=== PATIENT | female | born 1965 | race Caucasian/White ===

== ENCOUNTER 2016-04-22 13:04 | Emergency (ER) | payer OTHER ==
[~2016-04-22] VITALS: Ht 162.6 cm; Wt 88.6 kg
[~2016-04-22 13:04] MED LIST: ATEN50TA PO; CIPR-231 PO; HYDR-3090 PO; HYDR25TA4 PO; LEVO100T6 PO; NAPR375T4 PO; ONDA4TAB9 PO; ONDA8TAB10 PO; OXYC1TAB24 PO
[2016-04-22 13:07] VITALS: BP 146/91; PULSE 65; RESP 20; O2SAT 98
--- NOTE | 2016-04-22 13:37 | ED.REPORT ---
HPI-Back Pain 40 and Over Date of Service Apr 22, 2016 ED Provider: Doc,Ed MD History of Present Illness: lower right back pain, hurts to lay on it, since . Denies blood in urine, feels she has decreased urination [place] [facility] is primary care. + nausea and + vomiting pain is 7-8/10 worse with movement Nursing Notes Stated Complaint: SEVERE BACK PAIN/LOWER RIGHT SIDE Chief Complaint: Back Pain or Injury Nursing Notes Reviewed: Yes Allergies: Coded Allergies: codeine (Verified Allergy, Severe, SWELLING AND RASH, 01/22/15) erythromycin base (Verified Allergy, Intermediate, RASH, SWELLING, N/V, ) Scheduled Atenolol (Atenolol) 50 Mg Tablet 50 MG PO DAILY Ciprofloxacin (Cipro) 500 Mg Tablet 500 MG PO BID Hydrochlorothiazide (Hydrochlorothiazide) 25 Mg Tablet 25 MG PO DAILY Levothyroxine (Levothyroxine) 100 Mcg Tablet 100 MCG PO DAILY Scheduled PRN Hydrocodone-Acetaminophen 5-300 mg (Hydrocodone-Acetaminophen 5-300 mg) 1 Each Tablet 1-2 TABLET PO QID PRN PRN For Pain Naproxen (Naproxen) 375 Mg Tablet.dr 375 MG PO BID PRN PRN For Pain Ondansetron ODT (Zofran ODT) 4 Mg Tablet 4 MG PO Q4H PRN PRN For Nausea Ondansetron ODT (Ondansetron ODT) 8 Mg Tab.rapdis 8 MG PO Q4H PRN PRN For Nausea oxyCODONE-Acetaminophen 5-325 mg (oxyCODONE-Acetaminophen 5-325 mg) 1 Each Tablet 1-2 TAB PO Q6H PRN PRN For Pain General Time Seen by MD: 13:36 Chief Complaint Back pain, Flank pain right Hx Obtained From: Patient Sudden in Onset?: No Caused by: Spontaneous/no mechanism Severity: Current: Pain level 7 out of 10 Past Medical History Past Medical History hypertension hypercholesterolemia oteopenia hypothyroidism menopause Reports: Hypertension Reports: Thyroid disease Past Surgical History wrist and neck fusion Reports: Appendectomy, Cholecystectomy, Hysterectomy Smoking History Never Smoker Social History Alcohol Use: Denies alcohol use Drug Use: Denies drug use Occupation single, lives by self and cat works for [employer] 04/22/2016 Ambulatory Status Independent Review of Systems Basic Review of Systems Eyes: Vision NL, No discharge ENT: Hearing NL, No pain, No nasal congestion, No pharyngeal pain Hematologic: No bleeding, No bruising Endocrine: No cold intolerance, No heat intolerance, No weight gain, No weight loss Skin: No bruising, No rash, No itch Allergy / Immune: No allergy Psychiatric: Normal thought content Physical Exam Initial Vital Signs Vital Signs (First) Date Time Temp Pulse Resp B/P Pulse Ox O2 Delivery O2 Flow Rate FiO2 04/22/16 13:07 36.4 65 20 146/91 98 Room Air Initial VS: Reviewed, Vital signs normal Head / Eyes: Atraumatic, Normocephalic, PERRL ENT: Mucous membranes moist, Conjunctiva normal, No scleral icterus Neck: Supple, Non-tender, Full range of motion Lymphatic: No lymphadenopathy Extremities: Vascular intact, Neuro intact, No swelling, No tenderness Skin: Warm, Dry, No cyanosis Psychiatric: Mood/affect normal, Behavior normal, Normal thought content General/Constitutional: Awake, Alert, No acute distress, Well appearing, Well developed, Well hydrated Respiratory / Chest: Atraumatic, Breath sounds NL, Breath sounds = bilat, No respiratory distress Cardiovascular: Heart rate NL, Regular rhythm, Heart sounds NL, No gallop Abdomen: Atraumatic, Soft, Non-tender, McBurney's non-tender Back: Atraumatic, Inspection NL, Full range of motion, Painless range of motion right flank pain, no rash noted Neurologic: Oriented X3, Speech NL, No motor deficits Lower Extremity / Pelvis / MS: Atraumatic, Inspection NL, Full range of motion , No swelling Interpretation & Diagnostics Interpretation & Diagnostics: Image quality: Excellent. Lung bases: Lung bases are clear. Heart size is normal. Urinary system: No renal stones or hydronephrosis. There is a small exophytic left renal cyst. Both ureters appear non-dilated throughout their expected courses. Bladder wall thickness is normal; no calcified bladder stones. Other solid organs: Liver and spleen are normal in size. Gallbladder is surgically absent. Pancreas is normal in contours. No adrenal nodules. Peritoneum and bowel: Unenhanced bowel loops demonstrate normal wall thickness and caliber. There are postsurgical changes along the cecum likely related to prior appendectomy. No pericecal inflammatory changes. No free fluid or air. Nodes and vessels: No retroperitoneal or mesenteric adenopathy by size criteria. Aorta and inferior vena cava are normal in caliber. Abdominal wall: No ventral hernias. Pelvis: No free pelvic fluid. There are small fat containing bilateral inguinal hernias. No inguinal adenopathy. Bones: No suspicious bony lesions. No vertebral body compression fractures. IMPRESSION: 1. No evidence of nephrolithiasis or obstructive uropathy. 2. No definite acute intra-abdominal abnormality. Dictated by: Malcolm Conklin M.D. on 04/22/2016 at 14:17 Approved by: Malcolm Conklin M.D. on 04/22/2016 at 14:17 Lab Results Interpretation Result Diagram: 04/22/16 1420 04/22/16 1420 Test 04/22/16 13:49 04/22/16 14:20 Urine Color Yellow (YELLOW) Urine Appearance Clear (CLEAR,HAZY) Urine pH 7.5 (5.0-8.0) Urine Specific [place] 1.010 (1.003-1.035) Urine Protein Negativemg/dL (NEG,TRACE) Urine Glucose (UA) Negativemg/dL (NEGATIVE) Urine Ketones Negativemg/dL (NEGATIVE) Urine Occult Blood Negative (NEGATIVE) Urine Nitrite Negative (NEGATIVE) Urine Bilirubin Negative (NEGATIVE) Urine Urobilinogen Normalmg/dL (NORMAL) Urine Leukocyte Esterase Negative (NEGATIVE) Urine RBC 0-2/hpf (0-2) Urine WBC 0-5/hpf (0-5) Urine Epithelial Cells Few/hpf (NONE-MOD) Urine Crystals None seen (NONE SEEN) Urine Bacteria Few/hpf (NONE-FEW) Urine Hyaline Casts None/lpf (NONE) Urine Granular Casts None seen (NONE SEEN) Urine Waxy Casts None seen (NONE SEEN) Urine Red Blood Cell Casts None seen (NONE SEEN) Urine White Blood Cell Casts None seen (NONE SEEN) Urine Mucus None seen (None Seen) Urine Trichomonas None seen (NONE SEEN) Urine Yeast None (NONE SEEN) Urinalysis Comment None Urine Culture Reflexed Not indicated White Blood Count 9.6th/mm3 (3.8-10.1) Red Blood Count 4.72mil/mm3 (3.90-5.20) Hemoglobin 13.4g/dL (12.0-15.6) Hematocrit 40.1% (35.0-46.0) Mean Corpuscular Volume 85.0fL (81-100) Mean Corpuscular Hemoglobin 28.4pg (27.0-35.0) Mean Corpuscular Hemoglobin Concent 33.4% (32.0-37.0) Red Cell Distribution Width 13.5% (12.3-15.4) Platelet Count 326bil/L (150-400) Neutrophils (%) (Auto) 57.8% (40-74) Lymphocytes (%) (Auto) 33.2% (14-46) Monocytes (%) (Auto) 6.9% (4-12) Eosinophils (%) (Auto) 1.7% (0-5) Basophils (%) (Auto) 0.2% (0-3) Sodium Level 136mEq/L (134-144) Potassium Level 3.3mEq/L (3.5-5.2) Chloride Level 94mEq/L (97-108) Carbon Dioxide Level 28mmol/L (18-29) Blood Urea Nitrogen 10mg/dL (6-24) Creatinine 0.79mg/dL (0.57-1.00) Estimat Glomerular Filtration Rate 109mL/min (>59) Glucose Level 102mg/dL (60-99) Calcium Level 9.0mg/dL (8.5-10.1) Total Bilirubin 0.7mg/dL (0.0-1.2) Aspartate Amino Transf (AST/SGOT) 23U/L (0-50) Alanine Aminotransferase (ALT/SGPT) 18U/L (0-32) Alkaline Phosphatase 79U/L (25-150) Total Protein 7.0g/dL (6.4-8.4) Albumin 3.7g/dL (3.4-5.0) Lab Results Interpretation: urine is clear Discharge & Departure Impression: Primary Impression: Low back pain Chronicity: acute Back pain laterality: right Disposition: Home Patient Instructions: Acute Low Back Pain (ED) Additional Instructions: Your urine looks good. Your labs are normal. The CT looks good, no sign of kidney stone or obstruction. No dangerous cause of your pain was identified in the ER. Please use ibuprofen 800 mg 3 times a day. You can also use hydrocodone 1 up to 2 times a day as needed for severe pain. Please follow with primary care for a recheck in 3 to 7 days. REturn with any concerns. Referrals: NOPCP (PCP) EDSupervising Provider for APC: Ramy Bender MD, Sue ARNP Apr 22, 2016 13:37
[2016-04-22] MEDS ORDERED: 0.9% Sodium Chloride 1,000 ML IV ONE (13:50)
[2016-04-22] MEDS ORDERED: Ondansetron 2 mg/mL 2 mL Inj IVPUSH ONE (13:50)
[2016-04-22 14:10] LABS: APPEARANCE,URINE CLEAR (CLEAR,HAZY); COLOR,URINE YELLOW (YELLOW); OCCULT BLOOD,URINE NEGATIVE (NEGATIVE); PH,URINE 7.5 (5.0-8.0); UROBILINOGEN,URINE NORMAL (NORMAL)
--- NOTE | 2016-04-22 14:18 | DRSVH ---
PROCEDURE: CT KUB ([id number]) INDICATIONS: right flank pain TECHNIQUE: Noncontrast 5 mm thick sections acquired from the diaphragms to the symphysis. 5 mm thick coronal an d sagittal reformats were then performed. For radiation dose reduction, the following was used: aut omated exposure control, adjustment of mA and/or kV according to patient size. COMPARISON: [facility], CT, CT KUB, 01/13/2015, 13:23. FINDINGS: Image quality: Excellent. Lung bases: Lung bases are clear. Heart size is normal. Urinary system: No renal stones or hydronephrosis. There is a small exophytic left renal cyst. Bot h ureters appear non-dilated throughout their expected courses. Bladder wall thickness is normal; no calcified bladder stones. Other solid organs: Liver and spleen are normal in size. Gallbladder is surgically absent. Pancrea s is normal in contours. No adrenal nodules. Peritoneum and bowel: Unenhanced bowel loops demonstrate normal wall thickness and caliber. There a re postsurgical changes along the cecum likely related to prior appendectomy. No pericecal inflammat ory changes. No free fluid or air. Nodes and vessels: No retroperitoneal or mesenteric adenopathy by size criteria. Aorta and inferior vena cava are normal in caliber. Abdominal wall: No ventral hernias. Pelvis: No free pelvic fluid. There are small fat containing bilateral inguinal hernias. No inguin al adenopathy. Bones: No suspicious bony lesions. No vertebral body compression fractures. IMPRESSION: 1. No evidence of nephrolithiasis or obstructive uropathy. 2. No definite acute intra-abdominal abnormality. Dictated by: Malcolm Conklin M.D. on 04/22/2016 at 14:17 Approved by: Malcolm Conklin M.D. on 04/22/2016 at 14:17
[2016-04-22 14:54] LABS: BASOPHILS % (AUTO) 0.2 % (0-3); EOSINOPHILS % (AUTO) 1.7 % (0-5); MONOCYTES % (AUTO) 6.9 % (4-12); Mean Corpuscular Hemoglobin 28.4 pg (27.0-35.0); NEUTROPHILS % (AUTO) 57.8 % (40-74); Platelet Count 326 bil/L (150-400)
[2016-04-22] MEDS ORDERED: HYDROmorphone 0.5 mg/0.5 mL iSecure Syringe IVPUSH ONE (15:15)
[2016-04-22 15:19] VITALS: BP 120/74; PULSE 56; O2SAT 96
[2016-04-22 17:16] VITALS: BP 117/71; PULSE 56; O2SAT 96
== END 2016-04-22 17:17 | disposition home or self-care (01) ==
LOC: SED 13:04
DX: M54.5 Low back pain (principal); I10 Essential (primary) hypertension; Z90.49 Acquired absence of other specified parts of digestive tract; Z90.710 Acquired absence of both cervix and uterus; Z88.1 Allergy status to other antibiotic agents; Z88.5 Allergy status to narcotic agent
CPT/HCPCS: 36415; 74176; 80053; 81000; 81025; 85025; 96361; 96374; 96375; 99285; J1170; J2405; J7030